=== PATIENT | male | born 1965 | race Caucasian/White ===

== ENCOUNTER 2018-08-30 12:06 | Emergency (ER) | payer MEDICAID ==
[~2018-08-30] VITALS: Ht 175.3 cm; Wt 86.2 kg
[2018-08-30 12:27] VITALS: BP 144/97
--- NOTE | 2018-08-30 12:27 | NUR ---
PATIENT ABMULATED TO BED 3.
--- NOTE | 2018-08-30 12:34 | NUR ---
53 yo m bib self c/o left arm/shoulder pain since this morning. pt states he was lifting something heavy earlier today and hurt his arm, pt says it may be his "heart defibrillator" that may cause his arm to be hurting. 10/10 pain scale, pt w/ full rom. no erythema/edema/ecchymosis at this time. no obvious deformity. pt aaox4, gcs 15. cms intact. rr even and unlabored, lungs bl clear. abd soft, non-tender. er md notified of pt status. pt needs met. safety precautions in place. will continue to monitor.
[2018-08-30] MEDS ORDERED: KETOROLAC 60 MG/2 ML VIAL IM ONE (13:15)
--- NOTE | 2018-08-30 13:15 | NUR ---
XRAY AT BEDSIDE AT THIS TIME
--- NOTE | 2018-08-30 13:50 | NUR ---
PT RESTING COMFORTABLY IN [facility] W/ VSS AND RR EVEN AND UNLABORED. SAFETY PRECAUTIONS IN PLACE, PT NEEDS MET. WILL CONTINUE TO MONITOR
[2018-08-30 14:51] VITALS: BP 139/87
== END 2018-08-30 14:51 | disposition home or self-care (01) ==
LOC: MED 12:06
DX: M25.512 Pain in left shoulder (principal)
CPT/HCPCS: 73030; 93005; 96372; 99283; J1885; Q0092

== ENCOUNTER 2018-09-13 20:14 | Emergency (ER) | payer MEDICAID ==
[~2018-09-13] VITALS: Ht 175.3 cm; Wt 80.7 kg
[2018-09-13 20:18] VITALS: BP 142/90
--- NOTE | 2018-09-13 20:18 | NUR ---
to bed # 2 ambulatory, report given to Kaelyn Porter
--- NOTE | 2018-09-13 20:20 | NUR ---
PATIENT PRESENTS TO ED WITH C/O PAIN TO THE CHEST. PT STATES HE HAS BEEN COUGHING X 1 DAY. PTHAS TIGHNESS TO CHEST. DENIES N/V/D; SKIN IS PINK/WARM/DRY; AAOX4 WITH EVEN AND STEADY GAIT; LUNGS CLEAR BL; HR EVEN AND REGULAR; PT DENIES ANY FEVER, CP, SOB,AT THIS TIME; PATIENT STATES PAIN OF 7/10 AT THIS TIME; VSS; PATIENT POSITIONED FOR COMFORT; HOB ELEVATED; BEDRAILS UP X2; BED DOWN. ER MD MADE AWARE OF PT STATUS.
[2018-09-13] MEDS ORDERED: NACL 0.9% 1,000 ML IV ONE (20:30)
[2018-09-13 20:57] LABS: BASOPHILS # (AUTO) 0.1 K/uL (0.00-0.22); BASOPHILS % (AUTO) 0.8 % (0.0-2.0); EOSINOPHILS # (AUTO) 0.1 K/uL (0-0.4); EOSINOPHILS % (AUTO) 1.1 % (0.0-4.0); HEMATOCRIT 47.2 % (36-52); LYMPHOCYTES # (AUTO) 2.8 K/uL (2.0-11.5); LYMPHOCYTES % (AUTO) 35.4 % (20.5-51.1); MEAN CORPUSCULAR HEMOGLOBIN 30 pg (27-31); MEAN CORPUSCULAR HGB CONC 34 g/dL (33-37); MEAN CORPUSCULAR VOLUME 87.6 fL (80-94); MONOCYTES # (AUTO) 0.7 K/uL (0.8-1.0); MONOCYTES % (AUTO) 8.5 % (1.7-9.3); NEUTROPHILS # (AUTO) 4.3 K/uL (1.8-7.7); NEUTROPHILS % (AUTO) 54.2 % (42.2-75.2); PLATELET COUNT (AUTO) 215 K/uL (140-450); RED BLOOD CELL COUNT(AUTO) 5.39 MIL/uL (4.20-6.10); RED CELL DISTRIBUTION WIDTH 13.7 % (11.6-13.7); WHITE BLOOD COUNT (AUTO) 7.9 K/uL (4.8-10.8)
--- NOTE | 2018-09-13 20:59 | NUR ---
Dr. Sun evaluating patient at bedside.
[2018-09-13 21:14] LABS: CARBON DIOXIDE 22.5 mmol/L (21-32); POTASSIUM 3.5 mmol/L (3.5-5.1); TOTAL BILIRUBIN 0.4 mg/dL (0.0-1.0)
[2018-09-13 21:17] LABS: PROTHROMBIN TIME 9.9 secs (10.8-13.4)
[2018-09-13] MEDS ORDERED: KETOROLAC 30 MG/ML VIAL IVP ONE (21:20)
--- NOTE | 2018-09-13 22:25 | NUR ---
Patient discharged with v/s stable. Written and verbal after care instructions given and explained. Patient alert, oriented and verbalized understanding of instructions. Ambulatory with steady gait. All questions addressed prior to discharge. ID band removed. Patient advised to follow up with PMD. Rx of PROMETHAZINE WAS given. Patient educated on indication of medication including possible reaction and side effects. Opportunity to ask questions provided and answered.
[2018-09-13 22:28] VITALS: BP 132/88
== END 2018-09-13 22:25 | disposition home or self-care (01) ==
LOC: MED 20:14
DX: J06.9 Acute upper respiratory infection, unspecified (principal)
CPT/HCPCS: 36415; 71045; 80053; 84484; 85025; 85610; 85730; 87804; 93005; 96374; 99284; J1885; J7030

== ENCOUNTER 2019-02-26 09:02 | Emergency (ER) | payer MEDICAID ==
[~2019-02-26] VITALS: Ht 175.3 cm; Wt 79.4 kg
[2019-02-26 09:07] VITALS: BP 114/75
--- NOTE | 2019-02-26 09:15 | NUR ---
PT TO ER BED 12
[2019-02-26] MEDS ORDERED: NACL 0.9% 2,000 ML IV SCH (09:44)
[2019-02-26] MEDS ORDERED: KETOROLAC 30 MG/ML VIAL IVP ONE (09:45)
[2019-02-26] MEDS ORDERED: DEXAMETHASONE 10 MG/ML VIAL IVP ONE (09:45)
[2019-02-26] MEDS ORDERED: VANCOMYCIN 1,000 MG in DEXTROSE 5% 250 ML IV ONE (09:45)
[2019-02-26] MEDS ORDERED: diphenhydrAMINE 50 MG/ML VIAL IVP ONE (09:45)
--- NOTE | 2019-02-26 09:47 | NUR ---
X-RAY AT BEDSIDE COMPLETED
--- NOTE | 2019-02-26 09:50 | NUR ---
PT CAME TO ER C/O RT ANKLE PAIN X1 WEEK. PT REPORTS CONSTANT "EXPLODING PAIN" AT 10. PT REPORTS FEVER AT HOME,CURRENT TEMP 97.2. + NAUSEA. PT WENT TO [facility] RECIEVED CEPHAEXIN, AND TOLD TO RETURN IF IT DOESN'T GET BETTER. PT STATES OF COMPLETED ABX FOR 7 DAYS ON TUESDAY. PT RT ANKLE APPERS SLIGHT SWOLLEN , WITH MILD REDNESS. STATES FEELS PAIN MORE WHEN TOUCHED AT THE SITE. PT SEEN BY MD. WAITING FOR ORDERS. PT RESTING COMFORTABLY IN HIS BED. SIDE RAIL UPX1, BED AT LOWER POSITION. WILL CONTINUE TO MONITOR PT.
--- NOTE | 2019-02-26 10:22 | NUR ---
US AT BEDSIDE NOW.
[2019-02-26 10:35] LABS: BASOPHILS % (AUTO) 0.6 % (0.0-2.0); EOSINOPHILS % (AUTO) 0.3 % (0.0-4.0); HEMATOCRIT 45.2 % (36-52); HEMOGLOBIN 15.6 g/dL (12.0-18.0); LYMPHOCYTES # (AUTO) 1.5 K/uL (2.0-11.5); LYMPHOCYTES % (AUTO) 19.1 % (20.5-51.1); MEAN CORPUSCULAR HEMOGLOBIN 30 pg (27-31); MEAN CORPUSCULAR HGB CONC 35 g/dL (33-37); MEAN CORPUSCULAR VOLUME 86.8 fL (80-94); MONOCYTES # (AUTO) 0.6 K/uL (0.8-1.0); MONOCYTES % (AUTO) 7.3 % (1.7-9.3); NEUTROPHILS # (AUTO) 5.5 K/uL (1.8-7.7); NEUTROPHILS % (AUTO) 72.7 % (42.2-75.2); PLATELET COUNT (AUTO) 379 K/uL (140-450); RED BLOOD CELL COUNT(AUTO) 5.21 MIL/uL (4.20-6.10); RED CELL DISTRIBUTION WIDTH 12.9 % (11.6-13.7); WHITE BLOOD COUNT (AUTO) 7.6 K/uL (4.8-10.8)
[2019-02-26] MEDS ORDERED: VANCOMYCIN 1,000 MG VIAL ONE (10:37)
[2019-02-26 10:48] LABS: CARBON DIOXIDE 22.3 mmol/L (21-32); CHLORIDE 104 mmol/L (98-107); GFR ARICAN-AMERICAN 101 mL/min (>90); GLUCOSE 100 mg/dL (74-106); POTASSIUM 4.3 mmol/L (3.5-5.1); SODIUM SERUM 138 mmol/L (136-145); UREA NITROGEN, BLOOD 20 mg/dL (7-18)
[2019-02-26 10:49] LABS: ACETONE, SERUM NEGATIVE (NEGATIVE)
[2019-02-26 11:02] LABS: ALBUMIN 3.7 g/dL (3.4-5.0); ASPARTATE AMINOTRANSFERASE 36 U/L (15-37); TOTAL BILIRUBIN 0.3 mg/dL (0.0-1.0)
[2019-02-26 11:49] LABS: APPEARANCE,URINE CLEAR (CLEAR); BILIRUBIN,URINE 1+ (NEGATIVE); BLOOD, URINE NEGATIVE (NEGATIVE); COLOR,URINE YELLOW (YELLOW); LEUKOCYTE ESTERASE ,URINE NEGATIVE (NEGATIVE); NITRITE, URINE NEGATIVE (NEGATIVE); UGLUCOSE NEGATIVE (NEGATIVE)
[2019-02-26 11:53] LABS: BARBITURATE, URINE NEG. ng/ml (NEG <=200); BENZODIAZEPINE, URINE NEG. ng/mL (NEG <=200); CANNABINOID, URINE NEG. ng/mL (NEG <=50); COCAINE, URINE NEG. ng/mL (NEG <=300); OPIATE, URINE NEG. ng/mL (NEG <=2000); PHENCYCLIDINE SCREEN,URINE NEG. ng/mL (NEG <=25)
[2019-02-26 14:07] VITALS: BP 124/75
--- NOTE | 2019-02-26 14:09 | NUR ---
Patient discharged with v/s stable. Written and verbal after care instructions given and explained. Patient alert, oriented and verbalized understanding of instructions. Ambulatory with steady gait. All questions addressed prior to discharge. ID band removed. Patient advised to follow up with PMD. Rx of BACTROBAN, PREDNISONE,TRAMADOL given. Patient educated on indication of medication including possible reaction and side effects. Opportunity to ask questions provided and answered.
== END 2019-02-26 14:09 | disposition home or self-care (01) ==
LOC: MED 09:02
DX: S93.401A Sprain of unspecified ligament of right ankle, initial encounter (principal); S90.561A Insect bite (nonvenomous), right ankle, initial encounter; L03.115 Cellulitis of right lower limb; R79.89 Other specified abnormal findings of blood chemistry; W57.XXXA Bitten or stung by nonvenomous insect and other nonvenomous arthropods, initial encounter; Y93.89 Activity, other specified; Y92.89 Other specified places as the place of occurrence of the external cause; Y99.8 Other external cause status
CPT/HCPCS: 36415; 73610; 80053; 80305; 81003; 82009; 83605; 83735; 84550; 85025; 85379; 85651; 86140; 87040; 87086; 93971; 96365; 96366; 96375; 99284; G0482; J1100; J1200; J1885; J3370; J7030; Q0092

== ENCOUNTER 2021-10-04 11:25 | Inpatient (IN) | payer MEDICAID, SELFPAY ==
[~2021-10-04] VITALS: Ht 175.3 cm; Wt 63.5 kg
[2021-10-04 12:11] VITALS: BP 126/89
--- NOTE | 2021-10-04 12:24 | NUR ---
20G IV PLACED TO RIGHT FOREARM, BLOOD DRAWN AT THIS TIME.
--- NOTE | 2021-10-04 12:27 | NUR ---
TO ER BED 13
--- NOTE | 2021-10-04 12:30 | NUR ---
56 Y/O MALE C/O CHEST PAIN AND SOB X YESTERDAY. PT STATES HE HAS PACEMAKER WITH DEFIB, STATES HE FELT DEFIB SHOCK TODAY. RR EVEN AND UNLABORED, APPEARS ANXIOUS. SKIN WARM, DRY, INTACT. 9/10 CHEST PAIN. BED LOCKED AND IN LOWEST POSITION. PLACED ON BEDISDE MONITOR MEDHX: CARDIAC, HEP C
--- NOTE | 2021-10-04 12:33 | NUR ---
BLOODWORK HANDED TO VISION MIXER BEDSIDE
--- NOTE | 2021-10-04 12:49 | NUR ---
Pt in x-ray
--- NOTE | 2021-10-04 13:09 | NUR ---
PT MOVED FROM ROOM 13 TO ROOM 7
[2021-10-04 13:41] LABS: BASOPHILS # (AUTO) 0.1 K/uL (0.00-0.22); BASOPHILS % (AUTO) 0.6 % (0.0-2.0); EOSINOPHILS # (AUTO) 0.1 K/uL (0-0.4); EOSINOPHILS % (AUTO) 0.5 % (0.0-4.0); HEMATOCRIT 40.7 % (36-52); HEMOGLOBIN 13.5 g/dL (12.0-18.0); LYMPHOCYTES # (AUTO) 1.9 K/uL (2.0-11.5); LYMPHOCYTES % (AUTO) 16.7 % (20.5-51.1); MEAN CORPUSCULAR HEMOGLOBIN 26 pg (27-31); MEAN CORPUSCULAR HGB CONC 33 g/dL (33-37); MEAN CORPUSCULAR VOLUME 78.2 fL (80-94); MONOCYTES # (AUTO) 0.8 K/uL (0.8-1.0); MONOCYTES % (AUTO) 6.8 % (1.7-9.3); NEUTROPHILS # (AUTO) 8.7 K/uL (1.8-7.7); NEUTROPHILS % (AUTO) 75.4 % (42.2-75.2); PLATELET COUNT (AUTO) 335 K/uL (140-450); RED CELL DISTRIBUTION WIDTH 15.7 % (11.6-13.7); WHITE BLOOD COUNT (AUTO) 11.5 K/uL (4.8-10.8)
--- NOTE | 2021-10-04 13:44 | NUR ---
56 Y/O M C/O CHEST PAIN 07/05 SINCE YESTERDAY. PT HAS A PACEMAKER WITH DEFIB, STATED HE FELT DEFIB SHOCK TODAY. GABEA
[2021-10-04] MEDS ORDERED: NITROGLYCERIN 0.4 MG TAB SL ONE (13:50)
[2021-10-04] MEDS ORDERED: ASPIRIN 325 MG TAB PO ONE (13:50)
[2021-10-04 14:08] LABS: ALBUMIN 3.4 g/dL (3.4-5.0); ANION GAP 17.8 (8-16); CARBON DIOXIDE 24.5 mmol/L (21-32); CREATININE 0.9 mg/dL (0.6-1.3); POTASSIUM 3.3 mmol/L (3.5-5.1); TOTAL BILIRUBIN 0.5 mg/dL (0.0-1.0)
--- NOTE | 2021-10-04 19:15 | NUR ---
GAVE REPORT TO LEAH FULTON.
[2021-10-04] MEDS ORDERED: guaiFENesin DM 200/20 MG-10 ML 10 ML UDC PO PRN (21:40)
[2021-10-04] MEDS ORDERED: POTASSIUM CHLORIDE 10 MEQ TABER PO PRN (21:40)
[2021-10-04] MEDS ORDERED: NACL 0.9% 1,000 ML IV SCH (21:40)
[2021-10-04] MEDS ORDERED: ZOLPIDEM 5 MG TAB PO PRN (21:40)
[2021-10-04] MEDS ORDERED: DOCUSATE SODIUM 100 MG GELCAP PO PRN (21:40)
[2021-10-04] MEDS ORDERED: ACETAMINOPHEN 325 MG TAB PO PRN (21:40)
[2021-10-04] MEDS ORDERED: ONDANSETRON 4 MG/2 ML VIAL IM/IVP PRN (21:40)
[2021-10-04] MEDS ORDERED: NITROGLYCERIN 0.4 MG TAB SL PRN (21:45)
[2021-10-04 22:31] LABS: APPEARANCE,URINE CLEAR (CLEAR); BILIRUBIN,URINE NEGATIVE (NEGATIVE); BLOOD, URINE NEGATIVE (NEGATIVE); COLOR,URINE YELLOW (YELLOW); LEUKOCYTE ESTERASE ,URINE NEGATIVE (NEGATIVE); NITRITE, URINE NEGATIVE (NEGATIVE); UGLUCOSE NEGATIVE (NEGATIVE)
[2021-10-04 22:44] LABS: BARBITURATE, URINE NEGATIVE ng/ml (NEG <=200); BENZODIAZEPINE, URINE NEGATIVE ng/mL (NEG <=200); CANNABINOID, URINE POSITIVE ng/mL (NEG <=50); COCAINE, URINE POSITIVE ng/mL (NEG <=300); OPIATE, URINE POSITIVE ng/mL (NEG <=2000); PHENCYCLIDINE SCREEN,URINE NEGATIVE ng/mL (NEG <=25)
[2021-10-04 23:36] LABS: CHOL/HDL RATIO 3.3 (1-4.5); FREE T4 (FREE THYROXINE) 1.52 ng/dL (0.76-1.46); MAGNESIUM 1.7 mg/dL (1.8-2.4); PHOSPHORUS 3.1 mg/dL (2.5-4.9); THYROID STIMULATING HORMONE 0.1 uIU/mL (0.34-3.74)
[2021-10-04 23:41] LABS: PROTHROMBIN TIME 9.8 secs (10.8-13.4)
--- NOTE | 2021-10-04 23:46 | NUR ---
SWABBED NARES FOR MRSA SCREEN AND WALKED TO LAB
--- NOTE | 2021-10-05 01:44 | NUR ---
PT IS RESTING COMFORTABLY IN BED AT THIS TIME WITH RAILS UP X2, HOB RAISED, AND BED IN LOWEST SETTING.
[2021-10-05 07:15] LABS: BASOPHILS # (AUTO) 0.1 K/uL (0.00-0.22); BASOPHILS % (AUTO) 1.2 % (0.0-2.0); EOSINOPHILS % (AUTO) 0.1 % (0.0-4.0); HEMATOCRIT 40.6 % (36-52); HEMOGLOBIN 13.4 g/dL (12.0-18.0); LYMPHOCYTES # (AUTO) 2.1 K/uL (2.0-11.5); LYMPHOCYTES % (AUTO) 20.4 % (20.5-51.1); MEAN CORPUSCULAR HEMOGLOBIN 26 pg (27-31); MEAN CORPUSCULAR HGB CONC 33 g/dL (33-37); MEAN CORPUSCULAR VOLUME 78.1 fL (80-94); MONOCYTES # (AUTO) 0.9 K/uL (0.8-1.0); MONOCYTES % (AUTO) 9.3 % (1.7-9.3); NEUTROPHILS # (AUTO) 7.1 K/uL (1.8-7.7); PLATELET COUNT (AUTO) 329 K/uL (140-450); RED BLOOD CELL COUNT(AUTO) 5.19 MIL/uL (4.20-6.10); RED CELL DISTRIBUTION WIDTH 15.3 % (11.6-13.7); WHITE BLOOD COUNT (AUTO) 10.2 K/uL (4.8-10.8)
--- NOTE | 2021-10-05 07:25 | NUR ---
REPORT RECEIVED FROM LEAH FULTON FOR CONTINUITY OF CARE. PT ON ROOM AIR. A&OX4. SR ON MONITOR. IV SITE RT FOREARM 20G INFUSING NS AT 20 ML/HR. DENIES ANY PAIN. SKIN INTACT, WARM AND DRY. SAFETY PRECAUTIONS IN PLACE. WILL CONTINUE TO MONITOR.
--- NOTE | 2021-10-05 07:25 | NUR ---
GAVE TRANSFER OF CARE REPORT TO JUAN FULTON
[2021-10-05 07:58] LABS: ANION GAP 13.5 (8-16); CARBON DIOXIDE 25.2 mmol/L (21-32); CREATININE 0.7 mg/dL (0.6-1.3); POTASSIUM 3.7 mmol/L (3.5-5.1)
--- NOTE | 2021-10-05 08:40 | NUR ---
PT BROUGHT IN BY LINDA FROM THE ED IN STABLE CONDITION. PT AMBULATED TO THE BED. PLACED ON TELE MONITOR. PT REPORTS 10/10 PAIN IN BODY. WILL MEDICATE PER MD ORDER. PT HAS A RIGHT FOREARM 24G RUNNING NS @ 20ML. PT HAS A PACEMAKER, ON TELE MONITOR SHOWS SINUS RHYTHM. PT ON ROOM AIR WITH CHEST RISING AND FALLING EVEN AND UNLABORED. PT REPORTS FEEL SOB. VITAL SIGNS STABLE.
--- NOTE | 2021-10-05 08:42 | NUR ---
Patient will be admitted to care of DR OSORIO. Admited to TELEMETRY. Will go to room 130A. Belongings list completed. Report to WARERN FULTON.
[2021-10-05 08:55] VITALS: BP 142/98
[2021-10-05] MEDS: HYDROcodone/APAP 7.5/325 MG 1 TAB PO PRN ×3 (08:57→21:26)
[2021-10-05] MEDS ORDERED: PANTOPRAZOLE 40 MG TABEC PO SCH (09:00)
[2021-10-05] MEDS ORDERED: ECOTRIN 81 MG TABEC PO SCH (09:00)
--- NOTE | 2021-10-05 09:00 | NUR ---
GUSTAVO MEDICATION ADMINISTERED PER MD ORDER. PT TOLERATED ADMINISTRATION. PRN PAIN MEDICATION ADMINISTERED PER MD ORDER.
--- NOTE | 2021-10-05 11:38 | NUR ---
PT REPORTS 10 GENERALIZED PAIN, NOTIFIED MD. PAGAN RECEIVED AND PLACED.
[2021-10-05] MEDS ORDERED: MORPHINE SULFATE 4 MG/ML SYR IVP PRN (11:40)
[2021-10-05 12:00] VITALS: BP 145/81
--- NOTE | 2021-10-05 12:00 | NUR ---
PRN PAIN MEDICATION ADMINISTERED PER MD ORDER. PT TOLERATED ADMINISTRATION. PT REPORTS 10/10 PAIN IN BODY
--- NOTE | 2021-10-05 14:30 | NUR ---
ORNAMENTAL METAL WORKER APPRENTICE AT BEDSIDE. PT STABLE
[2021-10-05 16:00] VITALS: BP 152/86
--- NOTE | 2021-10-05 16:24 | NUR ---
PATIENT HAS BEEN SCREENED AND CATEGORIZED LOW NUTRITION RISK. PATIENT WILL BE SEEN WITHIN 7 DAYS OF ADMISSION. 10/11/[address]
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
--- NOTE | 2021-10-05 17:24 | NUR ---
SNACKS PROVIDED TO PT PER REQUEST
--- NOTE | 2021-10-05 18:05 | NUR ---
PT RESTING IN BED, ALL NEEDS MET THROUGHOUT THE SHIFT. PT WILL BE ENDORSED TO CROWN WHEEL ASSEMBLER NURSE.
[2021-10-05 20:00] VITALS: BP 135/80
--- NOTE | 2021-10-05 20:10 | NUR ---
RECEIVED REPORT OF PT IN STABLE CONDITION.RESP.UNLABORED IN RA.SL PATENT REFUSED START IVF.TELE IS ON AND SHOWING SR.CALL LIGHT IN REACH.NO C/O PAIN NOW.WILL CONTINUE MONITORING.
[2021-10-06] VITALS: BP 130/78
--- NOTE | 2021-10-06 | NUR ---
SLEEPING.NO S/S OF ANY DISTRESS NOTED.HR IS SR.WILL CONTINUE MONITOR
--- NOTE | 2021-10-06 01:45 | NUR ---
PT SIGNED AMA AND LEFT HOSPITAL IN STABLE CONDITION.INFORMED VANDANA KIM.
[2021-10-06 06:07] LABS: T4 (THYROXINE) 10.8 ug/dL (4.5-12.0)
== END 2021-10-06 01:40 | disposition left against medical advice (07) | DRG 812 ==
LOC: MED 11:25 → MTU 19:23 → MMU 10-05 04:16
PROVIDERS: ADMIT Family Medicine; ATTEND Family Medicine
DX: T50.901A Poisoning by unspecified drugs, medicaments and biological substances, accidental (unintentional), initial encounter (principal); G92.9 Unspecified toxic encephalopathy; I42.9 Cardiomyopathy, unspecified; I24.9 Acute ischemic heart disease, unspecified; B19.20 Unspecified viral hepatitis C without hepatic coma; I25.10 Atherosclerotic heart disease of native coronary artery without angina pectoris; Z20.822 Contact with and (suspected) exposure to COVID-19; E87.6 Hypokalemia; F17.210 Nicotine dependence, cigarettes, uncomplicated; F14.10 Cocaine abuse, uncomplicated; F15.10 Other stimulant abuse, uncomplicated; Z71.51 Drug abuse counseling and surveillance of drug abuser; Z95.0 Presence of cardiac pacemaker; Z59.00 Homelessness unspecified; Z71.6 Tobacco abuse counseling; Y92.89 Other specified places as the place of occurrence of the external cause
CPT/HCPCS: 36415; 71045; 80048; 80053; 80305; 81003; 82150; 83036; 83690; 83735; 83880; 84100; 84436; 84439; 84443; 84479; 84484; 85025; 85379; 85610; 85730; 87081; 93005; 99285; J2270; Q0092